=== PATIENT | female | born 1990 | race Caucasian/White ===

== ENCOUNTER 2021-12-29 08:02 | Outpatient (CLI) | payer BC, OTHER ==
[2021-12-29 13:27] LABS: Hemoglobin 11.2 g/dL (12.0-15.5); Mean Corpuscular HGB CONC 31.5 g/dL (32.0-36.0); Mean Corpuscular Hemoglobin 29.2 pg (27.0-33.0); Mean Corpuscular Volume 92.7 fl (81.6-98.3); Platelet Count 236 10x3/uL (150-450); RBC Distribution Width 14.2 % (11.5-14.5); Red Blood Cell (RBC) Count 3.83 10x6/uL (3.90-5.03)
[2021-12-29 14:15] LABS: Hep B Surf Ag Non-Reactive S/CO (NonReactive); Syphilis Antibody Nonreactive (Nonreactive); Syphilis Antibody Index 0.08 S/CO (<1.00 Non-Reactive)
[2021-12-29 14:16] LABS: HBSAg Index 0.23 S/CO (0-0.99)
[2021-12-30 07:50] LABS: SARS-CoV-2 PCR by NAA DETECTED (NotDetected)
== END 2021-12-29 08:03 | disposition home or self-care (01) ==
LOC: CSHLAB 08:02
PROVIDERS: ATTEND Obstetrics & Gynecology
DX: Z20.822 Contact with and (suspected) exposure to COVID-19 (principal)
CPT/HCPCS: 85027; 86780; 86900; 86901; 87340; U0003; U0005

== ENCOUNTER 2022-01-08 04:11 | Inpatient (IN) | payer BC ==
[2022-01-08 05:33] VITALS: BMI 26.9
[2022-01-08] MEDS ORDERED: Ondansetron PF 4 MG/2 ML Vial IVP PRN ×3 (06:04→17:23)
[2022-01-08] MEDS ORDERED: Lidocaine 1% (PF) 30 ML VIAL SC PRN (06:04)
[2022-01-08] MEDS ORDERED: HYDROcodone/Acetaminophen 5/325 mg Tablet PO PRN ×3 (06:04→17:23)
[2022-01-08] MEDS ORDERED: Ibuprofen 800 MG TAB PO PRN (06:04)
[2022-01-08] MEDS ORDERED: hydrALAZINE 20 MG/ML VIAL SLOW IVP PRN ×2 (06:04→17:23)
[2022-01-08] MEDS ORDERED: Butorphanol Tartrate 1 MG/ML VIAL SLOW IVP PRN (06:04)
[2022-01-08] MEDS ORDERED: Lactated Ringer's 1,000 ML IV SCH (06:15)
[2022-01-08] MEDS ORDERED: NS w/ Oxytocin 30 units 500 ML IV SCH ×2 (06:15→17:23)
[2022-01-08 06:31] LABS: Hemoglobin 11.1 g/dL (12.0-15.5); Mean Corpuscular HGB CONC 33.3 g/dL (32.0-36.0); Mean Corpuscular Hemoglobin 29.7 pg (27.0-33.0); Mean Platelet Volume 9.6 fl (7.4-10.4); Platelet Count 180 10x3/uL (150-450); RBC Distribution Width 14.9 % (11.5-14.5); Red Blood Cell (RBC) Count 3.74 10x6/uL (3.90-5.03); White Blood Cell (WBC) Count 8.6 10x3/uL (3.5-10.5)
[2022-01-08] MEDS ORDERED: Bupivacaine 0.25% HCL 30 ML VIAL ONE (08:00)
[2022-01-08] MEDS ORDERED: NS w/ Oxytocin 10 units 500 ML IV SCH (08:15)
[2022-01-08] MEDS: Lactated Ringer's 1,000 ML IV SCH ×2 (09:05→16:38)
[2022-01-08] MEDS ORDERED: Fentanyl 2 mcg/Bup 0.1% Cadd 100 ML ONE (09:57)
[2022-01-08] MEDS ORDERED: ePHEDrine Sulfate 50 MG/10 ML VIAL SLOW IVP PRN (10:34)
[2022-01-08] MEDS ORDERED: Hydrocerin (Eucerin) Cream 120 gm Jar TOP PRN (10:34)
[2022-01-08] MEDS ORDERED: diphenhydrAMINE 50 MG/ML VIAL IVP PRN (10:34)
[2022-01-08] MEDS ORDERED: Lactated Ringer's 500 ML IV PRN (10:34)
[2022-01-08] MEDS ORDERED: Naloxone HCl 0.4 mg/ml Vial IVP PRN ×2 (10:34)
[2022-01-08] MEDS ORDERED: Promethazine HCl 25 MG/ML VIAL IM PRN (10:34)
[2022-01-08] MEDS ORDERED: Acetaminophen 325 MG TAB PO PRN (10:34)
[2022-01-08] MEDS ORDERED: Fentanyl 2 mcg/Bupivacaine 0.1% Cassette 100 ML EPIDURAL SCH (10:45)
[2022-01-08] MEDS ORDERED: Communication Order-Pharmacy FS SCH (10:45)
[2022-01-08] MEDS ORDERED: Bisacodyl 10 MG SUPP PR PRN (17:23)
[2022-01-08] MEDS ORDERED: diphenhydrAMINE 25 MG CAP PO PRN (17:23)
[2022-01-08] MEDS ORDERED: Milk Of Magnesia 30 ML UDCUP PO PRN (17:23)
[2022-01-08] MEDS ORDERED: Preparation H Ointment 28 GM TUBE PR PRN (17:23)
[2022-01-08] MEDS ORDERED: Lanolin Ointment 7 GM TUBE TOP PRN (17:23)
[2022-01-08] MEDS ORDERED: Benzocaine-Menthol 82.5 ML CAN TOP PRN (17:23)
[2022-01-08] MEDS ORDERED: Ferrous Sulfate 325 MG TAB PO SCH (17:30)
[2022-01-08] MEDS: Docusate 100 MG CAP PO SCH (21:29)
[2022-01-08] MEDS: Ibuprofen 800 MG TAB PO SCH (21:29)
[2022-01-09] MEDS: Ibuprofen 800 MG TAB PO SCH ×3 (04:54→21:55)
[2022-01-09] MEDS: Ferrous Sulfate 325 MG TAB PO SCH ×2 (08:14→17:25)
[2022-01-09] MEDS ORDERED: Boostrix 0.5 ML (Tdap) VIAL IM ONE (09:00)
[2022-01-09] MEDS: Docusate 100 MG CAP PO SCH ×2 (09:19→21:54)
[2022-01-09] MEDS: Prenatal Vitamin 1 TAB PO SCH (09:19)
[2022-01-10] MEDS: Ibuprofen 800 MG TAB PO SCH (06:25)
[2022-01-10] MEDS: Ferrous Sulfate 325 MG TAB PO SCH (07:18)
[2022-01-10 08:07] VITALS: BP 137/67; TEMP 97.5
[2022-01-10] MEDS: Docusate 100 MG CAP PO SCH (08:07)
[2022-01-10] MEDS: Prenatal Vitamin 1 TAB PO SCH (08:07)
== END 2022-01-10 11:15 | disposition home or self-care (01) | DRG 806 ==
LOC: CSHLD/OP 04:11 → CSHLD 06:13 → CSHPP 18:40
PROVIDERS: ADMIT Obstetrics & Gynecology; ATTEND Obstetrics & Gynecology
PROC: 10E0XZZ Delivery of Products of Conception, External Approach (ICD-10-PCS; principal; 2022-01-08)
PROC: 0KQM0ZZ Repair Perineum Muscle, Open Approach (ICD-10-PCS; 2022-01-08)
DX: O42.02 Full-term premature rupture of membranes, onset of labor within 24 hours of rupture (principal); O98.52 Other viral diseases complicating childbirth; Z37.0 Single live birth; Z3A.40 40 weeks gestation of pregnancy; B00.9 Herpesviral infection, unspecified; O34.211 Maternal care for low transverse scar from previous cesarean delivery; O70.1 Second degree perineal laceration during delivery
CPT/HCPCS: 51702; 85027; 86850; 86900; 86901; 99285; J2590; S0020